=== PATIENT | female | born 2005 | race Caucasian/White ===

== ENCOUNTER 2024-10-17 20:29 | Observation (INO) | payer BC, OTHER ==
--- NOTE | 2024-10-17 20:54 | ED ---
General Adult HPI - General Chief complaint: Abdominal Pain Stated complaint: Cramping, 15 Weeks preg. Time Seen by Provider: 10/17/24 20:37 Source: patient, RN notes reviewed Mode of arrival: ambulatory Limitations: no limitations - History of Present Illness Initial comments: 18-year-old female presents to the emergency department for evaluation of abdominal cramping in . Patient states that she will be 15 weeks tomorrow. She reports cramping starting this morning and lasting throughout the day. She states that it has gotten worse throughout the day. She states that she has persistent cramps but the pain intermittently worsens. She reports that the severe pain lasts 1-1/2 to 2 hours at a time. She denies any vaginal bleeding, discharge. Denies dysuria, hematuria. Reports normal bowel movements. Admits to some mild nausea but no vomiting. Denies any significant past medical history. She follows with [facility] at [facility] but does not recall the name of her provider. - Related Data Home Medications Medication Instructions Recorded Confirmed Efi-Bojy-Rqcaq Acid 1 cap PO HS 10/18/24 10/18/24 [-U Capsule (formulary)] Previous Rx's Medication Instructions Recorded Acetaminophen Tab [Tylenol] 650 mg PO Q6HR PRN tab 10/20/24 cefuroxime axetiL [Ceftin] 500 mg PO BID #14 tab 10/20/24 Allergies Allergy/AdvReac Type Severity Reaction Status Date / Time No Known Allergies Allergy Verified 10/18/24 10:24 Review of Systems ROS Statement: Those systems with pertinent positive or pertinent negative responses have been documented in the HPI. ROS Other: All systems not noted in ROS Statement are negative. Past Medical History Past Medical History: No Reported History History of Any Multi-Drug Resistant Organisms: None Reported Past Surgical History: No Surgical Hx Reported Past Psychological History: No Psychological Hx Reported Smoking Status: Never smoker Past Alcohol Use History: None Reported Past Drug Use History: None Reported - Past Family History Mother History Unknown: Yes Father History Unknown: Yes General Exam Limitations: no limitations General appearance: alert, in no apparent distress Head exam: Present: atraumatic, normocephalic, normal inspection Eye exam: Present: normal appearance, PERRL, EOMI. Absent: scleral icterus, conjunctival injection, periorbital swelling ENT exam: Present: normal exam, mucous membranes moist Respiratory exam: Present: normal lung sounds bilaterally. Absent: respiratory distress, wheezes, rales, rhonchi, stridor Cardiovascular Exam: Present: regular rate, normal rhythm, normal heart sounds. Absent: systolic murmur, diastolic murmur, rubs, gallop, clicks GI/Abdominal exam: Present: soft, normal bowel sounds. Absent: distended, tenderness, guarding, rebound, rigid Extremities exam: Present: normal inspection, full ROM, normal capillary refill. Absent: tenderness, pedal edema, joint swelling, calf tenderness Neurological exam: Present: alert, oriented X3 Psychiatric exam: Present: normal affect, normal mood Skin exam: Present: warm, dry, intact, normal color. Absent: rash Course Vital Signs 10/17/24 10/18/24 20:30 00:06 Temperature 98.3 F Pulse Rate 78 88 Respiratory 18 18 Rate Blood Pressure 129/86 108/71 O2 Sat by Pulse 100 99 Oximetry Medical Decision Making - Medical Decision Making Was pt. sent in by a medical professional or institution (PRAMOD Mcleod, PUBLISHING SPECIALIST, urgent care, hospital, or fdc...) When possible be specific @ -No Did you speak to anyone other than the patient for history (EMS, parent, family, police, friend...)? What history was obtained from this source @ -No Did you review nursing and triage notes (agree or disagree)? Why? @ -I reviewed and agree with nursing and triage notes Were old charts reviewed (outside hosp., previous admission, EMS record, old EKG, old radiological studies, urgent care reports/EKG's, fdc records)? Report findings @ -No old charts were reviewed Differential Diagnosis (chest pain, altered mental status, abdominal pain women, abdominal pain men, vaginal bleeding, weakness, fever, dyspnea, syncope, headache, dizziness, GI bleed, back pain, seizure, CVA, palpatations, mental health, musculoskeletal)? @ -Differential Abdominal Pain Women: Appendicitis, Cholecystitis, diverticulosis, ischemic bowel, pancreatitis, hepatitis, UTI, gastroenteritis, AAA, incarcerated hernia, bowel obstruction, constipation, inflammatory bowel, hepatitis, peptic ulcer disease, splenic infarction, perforated viscus, vulvitis, ovarian torsion, PID, kidney stone, placenta abruption, this is not meant to be an all-inclusive list EKG interpreted by me (3pts min.). @ -None X-rays interpreted by me (1pt min.). @ -None done CT interpreted by me (1pt min.). @ -None done U/S interpreted by me (1pt. min.). @ -Ultrasound of the fetus shows a single live intrauterine measuring 15 weeks 4 days with a nonspecific focal circumscribed prominence along the right lower uterus possibly representing a focal uterine contraction What testing was considered but not performed or refused? (CT, X-rays, U/S, labs)? Why? @ -None What meds were considered but not given or refused? Why? @ -None Did you discuss the management of the patient with other professionals (professionals i.e. DrJeaneth, PA, PUBLISHING SPECIALIST, lab, RT, psych nurse, social work case manager, civil clerk, teacher, procurement officer, patient case coordinator)? Give summary @ -Management discussed with [facility] by my attending, Dr. Whitt Was smoking cessation discussed for >3mins.? @ -No Was critical care preformed (if so, how long)? @ -No Were there social determinants of health that impacted care today? How? (Homelessness, low income, unemployed, alcoholism, drug addiction, transportation, low edu. Level, literacy, decrease access to med. care, halfway, rehab)? @ -No Was there de-escalation of care discussed even if they declined (Discuss DNR or withdrawal of care, Hospice)? DNR status @ -No What co-morbidities impacted this encounter? (DM, HTN, Smoking, COPD, CAD, Cancer, CVA, ARF, Chemo, Hep., AIDS, mental health diagnosis, sleep apnea, morbid obesity)? @ - Was patient admitted / discharged? Hospital course, mention meds given and route, prescriptions, significant lab abnormalities, going to OR and other pertinent info. @ -Admitted.Patient presented the emergency department for evaluation of abdominal pain in . Laboratory studies obtained revealing no significant leukocytosis, hemoglobin stable; CMP shows sodium 132, potassium 4.1 patient was provided fluid hydration in the ED. UA obtained shows small blood, large leukocyte esterase, greater than 182 WBCs. Ultrasound of the fetus shows a single live intrauterine measuring 15 weeks 4 days with a nonspecific focal circumscribed prominence along the right lower uterus possibly representing a focal uterine contraction. Patient was started on Rocephin. Patient will be admitted for concern of developing pyelonephritis and . Case was discussed with [facility] by my attending, Dr. Whitt. Patient is understanding and agreeable with plan. Undiagnosed new problem with uncertain prognosis? @ -No Drug Therapy requiring intensive monitoring for toxicity (Heparin, Nitro, Insu dariusz, Cardizem)? @ -No Were any procedures done? @ -No Diagnosis/symptom? @ -UTI Acute, or Chronic, or Acute on Chronic? @ -Acute Uncomplicated (without systemic symptoms) or Complicated (systemic symptoms)? @ -Complicated Side effects of treatment? @ -No Exacerbation, Progression, or Severe Exacerbation? @ -No Poses a threat to life or bodily function? How? (Chest pain, USA, MS, pneumonia, PE, COPD, DKA, ARF, appy, cholecystitis, CVA, Diverticulitis, Homicidal, Suicidal, threat to staff... and all critical care pts) @ -No - Lab Data Result diagrams: 10/18/24 06:12 10/18/24 06:12 Lab Results 10/17/24 10/17/24 10/17/24 Range/Units 21:04 21:04 22:00 WBC 8.3 (4.0-11.0) k/uL RBC 5.25 (3.80-5.40) m/uL Hgb 15.7 (11.4-16.0) gm/dL Hct 45.1 (34.0-46.0) % MCV 85.9 (80.0-100.0) fL MCH 30.0 (25.0-35.0) pg MCHC 34.9 (31.0-37.0) g/dL RDW 12.6 (11.5-15.5) % Plt Count 231 (150-450) k/uL MPV 6.8 Neutrophils % 59 % Lymphocytes % 31 % Monocytes % 6 % Eosinophils % 2 % Basophils % 0 % Neutrophils # 4.9 (1.3-7.7) k/uL Lymphocytes # 2.6 (1.0-4.8) k/uL Monocytes # 0.5 (0-1.0) k/uL Eosinophils # 0.2 (0-0.7) k/uL Basophils # 0.0 (0-0.2) k/uL Sodium 132 L (137-145) mmol/L Potassium 4.1 (3.5-5.1) mmol/L Chloride 103 (98-107) mmol/L Carbon Dioxide 19 L (22-30) mmol/L Anion Gap 10 mmol/L BUN 9 (7-17) mg/dL Creatinine 0.61 (0.52-1.04) mg/dL Est GFR (CKD-EPI)AfAm >90 (>60 ml/min/1.73 sqM) Est GFR (CKD-EPI)NonAf >90 (>60 ml/min/1.73 sqM) Glucose 79 (74-99) mg/dL Calcium 9.8 (8.4-10.2) mg/dL Total Bilirubin 0.6 (0.2-1.3) mg/dL AST 24 (14-36) U/L ALT 16 (4-34) U/L Alkaline Phosphatase 41 (38-126) U/L Total Protein 7.2 (6.3-8.2) g/dL Albumin 4.4 (3.5-5.0) g/dL Lipase 159 (23-300) U/L Urine Color Light Yellow Urine Appearance Cloudy H (Clear) Urine pH 6.0 (5.0-8.0) Ur Specific [place] 1.019 (1.001-1.035) Urine Protein Trace H (Negative) Urine Glucose (UA) Negative (Negative) Urine Ketones 1+ H (Negative) Urine Blood Small H (Negative) Urine Nitrite Negative (Negative) Urine Bilirubin Negative (Negative) Urine Urobilinogen <2.0 (<2.0) mg/dL Ur Leukocyte Esterase Large H (Negative) Urine RBC 25 H (0-5) /hpf Urine WBC >182 H (0-5) /hpf Ur Squamous Epith Cells 17 H (0-4) /hpf Amorphous Sediment Occasional H (None) /hpf Urine Bacteria Many H (None) /hpf Urine Mucus Few H (None) /hpf Disposition Clinical Impression: Pyelonephritis affecting Disposition: ADMITTED IP TO THIS HOSP Is patient prescribed a controlled substance at d/c from ED?: No
[2024-10-17 21:42] LABS: Basophils % (A) 0 %; Eosinophils # (A) 0.2 k/uL (0-0.7); Eosinophils % (A) 2 %; HCT 45.1 % (34.0-46.0); HGB 15.7 gm/dL (11.4-16.0); Lymphocytes # (A) 2.6 k/uL (1.0-4.8); Lymphocytes % (A) 31 %; MCHC 34.9 g/dL (31.0-37.0); MCV 85.9 fL (80.0-100.0); Mean Platelet Volume 6.8; Monocytes # (A) 0.5 k/uL (0-1.0); Monocytes % (A) 6 %; Neutrophils # (A) 4.9 k/uL (1.3-7.7); Neutrophils % (A) 59 %; Platelet Count 231 k/uL (150-450); RBC 5.25 m/uL (3.80-5.40); RDW 12.6 % (11.5-15.5); WBC 8.3 k/uL (4.0-11.0)
[2024-10-17 21:53] LABS: ALT 16 U/L (4-34); AST 24 U/L (14-36); African American GFR (CKD) >90 (>60 ml/min/1.73 sqM); Albumin 4.4 g/dL (3.5-5.0); Alkaline Phosphatase 41 U/L (38-126); Anion Gap 10 mmol/L; Blood Urea Nitrogen 9 mg/dL (7-17); Calcium 9.8 mg/dL (8.4-10.2); Carbon Dioxide 19 mmol/L (22-30); Chloride 103 mmol/L (98-107); Glucose 79 mg/dL (74-99); Lipase 159 U/L (23-300); Non-African American GFR(CKD) >90 (>60 ml/min/1.73 sqM); Potassium 4.1 mmol/L (3.5-5.1); Sodium 132 mmol/L (137-145); Total Bilirubin 0.6 mg/dL (0.2-1.3); Total Protein 7.2 g/dL (6.3-8.2)
--- NOTE | 2024-10-17 22:17 | US ---
EXAMINATION TYPE: US OB >= 14 wk fetus DATE OF EXAM: 10/17/2024 COMPARISON: None CLINICAL INDICATION: Female, 18 years old with history of 15 wks, cramping; pelvic cramping began at 5am TECHNIQUE: Transabdominal (TA) FINDINGS: GESTATIONAL AGE / DATING Physician Established: (14 weeks/6 days) EDC: 04/11/25 Dates by Current Scan: (15 weeks/4 days) EDC: 04/06/25 Beta HCG (if available): Not available at this time SURVEY IUP: Single PLACENTA: Anterior PREVIA: No Previa DANNY: 12.9 cm Normal CERVICAL LENGTH (transabdominal: norm > 3.0cm): 3.4 cm BIOMETRY PRESENTATION: Vertex LIE: Longitudinal BPD: 3.14 cm 15 weeks / 6 days HC: 11.4 cm 15 weeks / 4 days AC: 9.5 cm 15 weeks / 5 days FL: 1.6 cm 14 weeks / 6 days ESTIMATED WEIGHT IN GRAMS: 118 grams ESTIMATED WEIGHT IN LBS/OZ: 0 lbs. 4 oz. WEIGHT PERCENTAGE BASED ON ESTABLISHED DATES: 64% HC/AC: 1.2 Normal FL/AC: 17% HEART RATE: 146 bpm RHYTHM: Normal Patient limited by positioning. Nonspecific focal circumscribed prominence along the right lower uterus, possibly representing a foca l uterine contraction. Recommend appropriate clinical follow-up with FIBR[facility] PLASTERER and attention on follow-u p imaging. IMPRESSION: Single live intrauterine with estimated gestational age of 15 weeks 4 days. survey me asurements as above. [facility], , 10/17/2024 10:14 PM
[2024-10-17] MEDS: SODIUM CHLORIDE 0.9% 1,000 ML IV ONE (22:52)
[2024-10-17 23:25] LABS: Amorphous Sediment,Urine Occasional /hpf; Appearance,Urine Cloudy (Clear); Bacteria,Urine Many /hpf; Bilirubin,Urine Negative (Negative); Blood,Urine Small (Negative); Color,Urine Light Yellow; Glucose,Urine (UA) Negative (Negative); Ketones,Urine 1+ (Negative); Leukocyte Esterase,Urine Large (Negative); Mucus,Urine Few /hpf; Nitrite,Urine Negative (Negative); Protein,Urine Trace (Negative); RBC,Urine 25 /hpf (0-5); Specific Gravity,Urine 1.019 (1.001-1.035); Squamous Epithelial Cell,Urine 17 /hpf (0-4); Urobilinogen,Urine <2.0 mg/dL (<2.0); WBC,Urine >182 /hpf (0-5)
[2024-10-17] MEDS ORDERED: MORPHINE SULFATE 4 MG/ML SYRINGE IV PRN (23:37)
[2024-10-17] MEDS ORDERED: NALOXONE 0.4 MG/ML 1 ML VIAL IV PRN (23:37)
[2024-10-18] MEDS: SODIUM CHLORIDE 0.9% 1,000 ML IV SCH (00:16)
[2024-10-18] MEDS: ACETAMINOPHEN TAB 325 MG TAB PO PRN (04:58)
[2024-10-18] MEDS: ONDANSETRON 4 MG/2 ML VIAL IVP PRN (06:03)
[2024-10-18 06:25] LABS: Basophils % (A) 0 %; Eosinophils # (A) 0.1 k/uL (0-0.7); Eosinophils % (A) 1 %; HCT 37.7 % (34.0-46.0); Lymphocytes # (A) 1.5 k/uL (1.0-4.8); Lymphocytes % (A) 20 %; MCH 29.7 pg (25.0-35.0); MCHC 33.7 g/dL (31.0-37.0); MCV 88.1 fL (80.0-100.0); Mean Platelet Volume 6.6; Monocytes # (A) 0.3 k/uL (0-1.0); Monocytes % (A) 4 %; Neutrophils # (A) 5.7 k/uL (1.3-7.7); Neutrophils % (A) 75 %; Platelet Count 200 k/uL (150-450); RBC 4.28 m/uL (3.80-5.40); RDW 12.6 % (11.5-15.5); WBC 7.6 k/uL (4.0-11.0)
[2024-10-18 06:39] LABS: HGB 12.7 gm/dL (11.4-16.0)
[2024-10-18 08:06] LABS: African American GFR (CKD) >90 (>60 ml/min/1.73 sqM); Anion Gap 8 mmol/L; Blood Urea Nitrogen 5 mg/dL (7-17); Calcium 8.9 mg/dL (8.4-10.2); Carbon Dioxide 18 mmol/L (22-30); Chloride 108 mmol/L (98-107); Glucose 82 mg/dL (74-99); Non-African American GFR(CKD) >90 (>60 ml/min/1.73 sqM); Potassium 3.8 mmol/L (3.5-5.1); Sodium 134 mmol/L (137-145)
--- NOTE | 2024-10-18 12:23 | P.OBCN ---
History of Present Illness Consult date: 10/18/24 Reason for consult: other (UTI/pyelonephritis, 16 weeks of .) History of present illness: The patient is a 18-year-old 1 para 0 who presents to the hospital at approximately 16 weeks of gestation with complaints of severe suprapubic midline cramping for approximately 24 hours that did radiate to her right flank. In the emergency room, she was found to have what appeared to be a fairly significant urinary tract infection though her white count was not elevated and she was afebrile. She denied fever at home. She had no significant nausea or vomiting. She was admitted for management of UTI/borderline pyelonephritis. She was given a dose of Rocephin in the emergency room and this is to be continued. She does feel moderately better approximately 18 hours after presentation. She does not have any sensation of movement at this point. Her to this point has otherwise been uncomplicated. Obstetrical history: 1 para 0 with current statistics listed above. EDC of 04/11/2025 was established by early ultrasound. laboratory panel is unremarkable with blood type a positive. Gynecologic history: Unremarkable with no history of any infections to include STDs. Review of Systems Review of systems is confined to history of present illness. Past Medical History Past Medical History: No Reported History History of Any Multi-Drug Resistant Organisms: None Reported Past Surgical History: No Surgical Hx Reported Past Psychological History: No Psychological Hx Reported Smoking Status: Never smoker Past Alcohol Use History: None Reported Past Drug Use History: None Reported - Past Family History Mother History Unknown: Yes Father History Unknown: Yes Medications and Allergies Home Medications Medication Instructions Recorded Confirmed Type Onq-Jlgy-Ccoyp Acid 1 cap PO HS 10/18/24 10/18/24 History [-U Capsule (formulary)] Allergies Allergy/AdvReac Type Severity Reaction Status Date / Time No Known Allergies Allergy Verified 10/18/24 10:24 Exam Vital Signs Temp Pulse Pulse Resp BP BP Pulse Ox 10/18/24 07:00 98.2 F 91 15 105/63 99 10/18/24 00:40 98.1 F 79 16 100/61 100 10/18/24 00:06 88 18 108/71 99 10/17/24 20:30 98.3 F 78 18 129/86 100 Intake and Output 10/17/24 10/18/2410/18/25 22:59 06:59 14:59 Other: Voiding Method Toilet Toilet # Voids 2 Weight 58.967 kg 58.967 kg In general, this is a well-developed, well-nourished white female in no acute distress. Her abdomen is nondistended, soft, minimal midline tenderness in the suprapubic region. The uterine fundus is palpable consistent with approximately 15 to 16 weeks size. heart tones are doppled at approximately 148 bpm. The uterus itself is nontender. Her extremities are without any cyanosis, clubbing, edema and are nontender to palpation bilaterally. Results Result Diagrams: 10/18/24 06:12 10/18/24 06:12 Abnormal Lab Results - Last 24 Hours (Table) 10/17/24 10/17/24 10/18/24 Range/Units 21:04 22:00 06:12 Sodium 132 L 134 L (137-145) mmol/L Chloride 108 H (98-107) mmol/L Carbon Dioxide 19 L 18 L (22-30) mmol/L BUN 5 L (7-17) mg/dL Urine Appearance Cloudy H (Clear) Urine Protein Trace H (Negative) Urine Ketones 1+ H (Negative) Urine Blood Small H (Negative) Ur Leukocyte Esterase Large H (Negative) Urine RBC 25 H (0-5) /hpf Urine WBC >182 H (0-5) /hpf Ur Squamous Epith Cells 17 H (0-4) /hpf Amorphous Sediment Occasional H (None) /hpf Urine Bacteria Many H (None) /hpf Urine Mucus Few H (None) /hpf Assessment and Plan (1) Pyelonephritis affecting Current Visit: Yes Status: Acute Code(s): O23.00 - INFECTIONS OF KIDNEY IN , UNSPECIFIED TRIMESTER SNOMED Code(s): 24146442461600 Plan: I do not believe that her symptoms meet the diagnosis of pyelonephritis as she has afebrile and without a white count but do agree that it is approaching that. IV antibiotic management is appropriate and Rocephin is an excellent choice. I do not see any reason for infectious disease consultation assuming there is a urine culture pending. I would treat the patient with IV antibiotics until afebrile with a normal white count for at least 24 hours with at least moderate clinical improvement. Given this criteria, I would anticipate she be ready for discharge tomorrow morning. She will otherwise then follow-up with our office in the outpatient setting and has an appointment a week from tomorrow. I would consider continuing her on antibiotics orally as an outpatient. Options would include Keflex 500 mg 3 times daily, Bactrim DS twice daily, or Macrobid twice daily.
--- NOTE | 2024-10-18 13:39 | US ---
EXAMINATION TYPE: US kidneys/renal and bladder DATE OF EXAM: 10/18/2024 COMPARISON: NONE CLINICAL INDICATION: Female, 18 years old with history of pyelonephritis; RLQ pain x 2 days; Patient is about 15 weeks . TECHNIQUE: Grayscale imaging of the bilateral kidneys and urinary bladder: FINDINGS: EXAM MEASUREMENTS: Right Kidney: 10.4 x 4.8 x 5.3 cm Left Kidney: 10.3 x 6.7 x 5.0 cm Post Void Residual Volume: NA mL RLQ scanned due to patients concern. ? Normal appendix visualized vs bowel. ? Dilated tubular structu res seen superior lateral to gravidad uterus. Fluid seen in RLQ post void ? Hypoechoic/anechoic area seen between bladder and uterus post void Right Kidney: Prominent renal pelvis otherwise WNL Left Kidney: WNL Bladder: WNL Bilateral Jets seen: Right jet not seen within the 5 minute period Normal Post Void Residual: Yes IMPRESSION: 1. No renal calcification or hydronephrosis. 2. Small amount of fluid within the pelvis. [facility], Workstation: KRYSTAL 10/18/2024 1:36 PM
[2024-10-18] MEDS ORDERED: MORPHINE SULFATE 2 MG/ML SYRINGE IV PRN (15:08)
--- NOTE | 2024-10-18 15:08 | P.HPIM ---
History of Present Illness H&P Date: 10/18/24 History of present illness: 18-year-old female with 1 para 0 who presented to hospital for complaint of severe suprapubic midline cramping pain for approximately 24 hours radiating to right flank. Patient is currently approximately 16 weeks of gestation. Patient denied any fever or chills at home. Patient also denied any nausea or vomiting. Patient denied any diarrhea. Patient denied any vaginal discharge. Patient afebrile, heart rate 91, respiratory rate 15, blood pressure 105/63, saturating 99% on room air. WBC 7.6, hemoglobin 12.7, platelet 200. BMP unremarkable. UA positive for WBCs more than 182, large leukocyte esterase many bacteria, 17 squamous cells. ultrasound showed single live intrauterine with estimated gestational age of 15 weeks 4 days. Abdomen/bladder ultrasound showed no renal calcification or hydronephrosis, small amount of fluid within the pelvis. Assessment and plan: Lower abdominal pain: UTI: 16 weeks : Presented with 1 day symptoms of lower abdominal cramping pain. ultrasound showed single live intrauterine with estimated gestational age of 15 weeks 4 days. Abdomen/bladder ultrasound showed no renal calcification or hydronephrosis, small amount of fluid within the pelvis. Urinalysis positive. Currently on Rocephin Infectious disease consultedrecommended general surgery consult and ultrasound abdomen complete PUPIL PERSONNEL WORKER consulted recommended antibiotics---, okay to continue Rocephin, other options include Keflex, Bactrim or Macrobid. General surgery consulted DVT prophylaxis SCD Monitor vital signs and labs Labs and medication were reviewed. Continue same treatment. Further recommendations as per clinical course of the patient PHYSICAL EXAMINATION: GENERAL: The patient is A&O x3, NAD HEENT: EOMI, Sclerae anicteric, Moist Mucous membranes Neck: Supple, Non tender, No JVD PULMONARY: Equal breath souds B/L, No wheezing, No crackles. CARDIOVASCULAR: S1, S2 present. No murmurs, rubs, or gallops. ABDOMEN: Soft, Lower abd tender, nondistended, normoactive bowel sounds. No guarding or rebound tenderness. MUSCULOSKELETAL: No edema, No cyanosis. No clubbing. Normal ROM. Intact peripheral pulses. NEUROLOGICAL: CN 2-12 grossly intact. No FND REVIEW OF SYSTEMS: CONSTITUTIONAL: No fever, no malaise, no fatigue. HEENT: No recent visual problems or hearing problems. Denied any sore throat. CARDIOVASCULAR: No chest pain, orthopnea, PND, no palpitations, no syncope. PULMONARY: No shortness of breath, no cough, no hemoptysis. GASTROINTESTINAL: Complains of lower abdominal pain, radiating to bilateral upper flanks. NEUROLOGICAL: No headaches, no weakness, no numbness. HEMATOLOGICAL: Denies any bleeding or petechiae. GENITOURINARY: Denies any burning micturition, frequency, or urgency. MUSCULOSKELETAL/RHEUMATOLOGICAL: Denies any joint pain, swelling, or any muscle pain. ENDOCRINE: Denies any polyuria or polydipsia. The rest of the 14-point review of systems is negative. Dictation was produced using [employer] software. please excuse any grammatical, word or spelling errors. Past Medical History Past Medical History: No Reported History History of Any Multi-Drug Resistant Organisms: None Reported Past Surgical History: No Surgical Hx Reported Past Psychological History: No Psychological Hx Reported Smoking Status: Never smoker Past Alcohol Use History: None Reported Past Drug Use History: None Reported - Past Family History Mother History Unknown: Yes Father History Unknown: Yes Medications and Allergies Home Medications Medication Instructions Recorded Confirmed Type Zei-Oarx-Vinhu Acid 1 cap PO HS 10/18/24 10/18/24 History [-U Capsule (formulary)] Allergies Allergy/AdvReac Type Severity Reaction Status Date / Time No Known Allergies Allergy Verified 10/18/24 10:24 Physical Exam Vitals: Vital Signs Temp Pulse Pulse Resp BP BP Pulse Ox 10/18/24 07:00 98.2 F 91 15 105/63 99 10/18/24 00:40 98.1 F 79 16 100/61 100 10/18/24 00:06 88 18 108/71 99 10/17/24 20:30 98.3 F 78 18 129/86 100 Intake and Output 10/18/24 10/18/24 10/18/24 06:59 14:59 22:59 Other: Voiding Method Toilet Toilet # Voids 2 Weight 58.967 kg Results CBC & Chem 7: 10/18/24 06:12 10/18/24 06:12 Labs: Abnormal Lab Results - Last 24 Hours (Table) 01/25/25 01/25/25 01/26/25 Range/Units 21:04 22:00 06:12 Sodium 132 L 134 L (137-145) mmol/L Chloride 108 H (98-107) mmol/L Carbon Dioxide 19 L 18 L (22-30) mmol/L BUN 5 L (7-17) mg/dL Urine Appearance Cloudy H (Clear) Urine Protein Trace H (Negative) Urine Ketones 1+ H (Negative) Urine Blood Small H (Negative) Ur Leukocyte Esterase Large H (Negative) Urine RBC 25 H (0-5) /hpf Urine WBC >182 H (0-5) /hpf Ur Squamous Epith Cells 17 H (0-4) /hpf Amorphous Sediment Occasional H (None) /hpf Urine Bacteria Many H (None) /hpf Urine Mucus Few H (None) /hpf Thrombosis Risk Factor Assmnt - Choose All That Apply Each Factor Represents 1 point: or Other Risk Factors: No Thrombosis Risk Factor Assessment Total Risk Factor Score: 1 Thrombosis Risk Factor Assessment Level: Low Risk
--- NOTE | 2024-10-18 20:59 | US ---
EXAMINATION TYPE: US abdomen complete DATE OF EXAM: 10/18/2024 COMPARISON: NONE CLINICAL INDICATION: Female, 18 years old with history of Lower abd pain; abdomen pain, UTI, pt is 15 weeks TECHNIQUE: Grayscale and color Doppler imaging of the abdomen was performed. FINDINGS: EXAM MEASUREMENTS: Liver Length: 15.6 cm Gallbladder Wall: 0.2 cm CBD: 0.3 cm, color Doppler imaging was utilized to isolate the common bile duct for measurement. Spleen: 10.8 cm Right Kidney: 10.3x4.5x5.3 cm Left Kidney: 9.8x5.9x5.5 cm CERAMIST NOTES: Pancreas: Tail obscured by overlying bowel gas Liver: wnl, no dilated ducts, masses or cysts. Gallbladder: wnl Evidence for sonographic Yap's sign: No CBD: wnl Spleen: wnl Right Kidney: Possible mild right-sided hydronephrosis. No evidence of right-sided nephrolithiasis. N o solid renal mass. Left Kidney: wnl, No hydronephrosis, calculi or masses seen Upper IVC: prominent but compressible Abd Aorta: wnl The liver is homogenous. The intrahepatic portion of the IVC and proximal abdominal aorta are within normal limits. There is no evidence of cholelithiasis. Common bile duct is unremarkable. The visu alized portions of the pancreas are homogenous. The spleen is unremarkable. Possible mild right-side d hydronephrosis without discrete sonographic evidence of an obstructing stone or other lesion. Limit ed evaluation of the mid and distal right ureter due to shadowing bowel gas. No evidence of left-side d hydronephrosis. IMPRESSION: Questionable mild right-sided hydronephrosis without discrete sonographic evidence of an obstructing stone or other lesion. Limited evaluation of the mid and distal right ureter due to shadowing bowel g as. [facility], , 10/18/2024 8:57 PM
--- NOTE | 2024-10-19 09:11 | P.CONS ---
History of Present Illness - Reason for Consult Consult date: 10/18/24 UTI, 15 weeks Requesting physician: Deric Cifuentes - Chief Complaint Abdominal pain x 1 day - History of Present Illness Patient is a 18-year-old female with no significant past medical history patient is currently 15 weeks presenting to the hospital for evaluation of right-sided abdominal pain that started the day of presentation to hospital and has progressively got worse patient have described the pain to be cramping moderate in intensity without any radiation patient did have nausea and episode of vomiting yesterday patient denies having any diarrhea or constipation denies having any burning or frequency of urine patient on presentation to the hospital was afebrile and no fever have recorded subsequently patient was nontachycardic hypotensive or hypoxic and no need for supplemental oxygen she did have a white count of 8.3 repeat is 7.6 with a left shift creatinine 0.56 UA has been significantly positive with large leukocyte esterase more than 1-2 WBC patient received a dose of Rocephin in the ER infectious disease was consulted regarding UTI 15 weeks Review of Systems Positive point and negatives has been mentioned in the HPI, complete review of systems was performed and all other systems are negative Past Medical History Past Medical History: No Reported History History of Any Multi-Drug Resistant Organisms: None Reported Past Surgical History: No Surgical Hx Reported Past Psychological History: No Psychological Hx Reported Smoking Status: Never smoker Past Alcohol Use History: None Reported Past Drug Use History: None Reported - Past Family History Mother History Unknown: Yes Father History Unknown: Yes Medications and Allergies Home Medications Medication Instructions Recorded Confirmed Type Gfa-Aoqp-Grflr Acid 1 cap PO HS 10/18/24 10/18/24 History [-U Capsule (formulary)] Allergies Allergy/AdvReac Type Severity Reaction Status Date / Time No Known Allergies Allergy Verified 10/18/24 10:24 Physical Exam Vitals: Vital Signs Temp Pulse Pulse Resp BP BP Pulse Ox 10/18/24 07:00 98.2 F 91 15 105/63 99 10/18/24 00:40 98.1 F 79 16 100/61 100 10/18/24 00:06 88 18 108/71 99 10/17/24 20:30 98.3 F 78 18 129/86 100 Intake and Output 10/17/24 10/18/24 10/18/24 22:59 06:59 14:59 Other: Voiding Method Toilet Toilet # Voids 2 Weight 58.967 kg 58.967 kg GENERAL DESCRIPTION: Young female lying in bed, no distress. No tachypnea or accessory muscle of respiration use. HEENT: Shows Pallor , no scleral icterus. Oral mucous membrane is dry. No pharyngeal erythema or thrush NECK: Trachea central, no thyromegaly. LUNGS: Unlabored breathing. Clear to auscultation anteriorly. No wheeze or crackle. HEART: S1, S2, regular rate and rhythm. No loud murmur ABDOMEN: Soft, right lower quadrant tenderness with some rebound tenderness EXTREMITIES: No edema of feet. SKIN: No rash, no masses palpable. NEUROLOGICAL: The patient is awake, alert, oriented x3, mood and affect normal. Results CBC & Chem 7: 10/18/24 06:12 10/18/24 06:12 Labs: Abnormal Lab Results - Last 24 Hours (Table) 10/17/24 10/17/24 10/18/24 Range/Units 21:04 22:00 06:12 Sodium 132 L 134 L (137-145) mmol/L Chloride 108 H (98-107) mmol/L Carbon Dioxide 19 L 18 L (22-30) mmol/L BUN 5 L (7-17) mg/dL Urine Appearance Cloudy H (Clear) Urine Protein Trace H (Negative) Urine Ketones 1+ H (Negative) Urine Blood Small H (Negative) Ur Leukocyte Esterase Large H (Negative) Urine RBC 25 H (0-5) /hpf Urine WBC >182 H (0-5) /hpf Ur Squamous Epith Cells 17 H (0-4) /hpf Amorphous Sediment Occasional H (None) /hpf Urine Bacteria Many H (None) /hpf Urine Mucus Few H (None) /hpf Assessment and Plan (1) UTI (urinary tract infection) Current Visit: Yes Status: Acute Code(s): N39.0 - URINARY TRACT INFECTION, SITE NOT SPECIFIED SNOMED Code(s): 13794371 Plan: 1patient presenting the hospital with lower abdominal pain in this patient who is currently 15 weeks patient noticed to have a significant tenderness right lower quadrant area with some rebound tenderness with a question of possible appendicitis, patient did have a significant positive UA however no significant urinary symptoms of burning or frequency 2-Case has been discussed detail with admitting physician will benefit from general surgery evaluation to rule out appendicitis 3-patient will be covered with Rocephin while waiting for the workup to be comp leted Multiple question concern answered We will follow on clinical condition and cultures to further adjust medication if needed Thank you for this consultation we will follow the patient along with you Dictation was produced using [employer] dictation software. please excuse any grammatical, word or spelling errors. Time with Patient: Greater than 30
--- NOTE | 2024-10-19 17:39 | P.PN ---
Progress Note - Text Progress Note Date: 10/19/24 History of present illness: 18-year-old female with 1 para 0 who presented to hospital for complaint of severe suprapubic midline cramping pain for approximately 24 hours radiating to right flank. Patient is currently approximately 16 weeks of gestation. Patient denied any fever or chills at home. Patient also denied any nausea or vomiting. Patient denied any diarrhea. Patient denied any vaginal discharge. Patient afebrile, heart rate 91, respiratory rate 15, blood pressure 105/63, saturating 99% on room air. WBC 7.6, hemoglobin 12.7, platelet 200. BMP unremarkable. UA positive for WBCs more than 182, large leukocyte esterase many bacteria, 17 squamous cells. ultrasound showed single live intrauterine with estimated gestational age of 15 weeks 4 days. Abdomen/bladder ultrasound showed no renal calcification or hydronephrosis, small amount of fluid within the pelvis. October 19: Reclining in bed. Having some nausea. Still having abdominal pain. I just spoke to the nurse patient seen by surgery. Have ordered MRI of the abdomen. No further fever.At remains on IV ceftriaxone. Patient's at the bedside. Active Medications Acetaminophen (Acetaminophen Tab 325 Mg Tab) 650 mg PO Q6HR PRN PRN Reason: Mild Pain or Fever > 100.5 Last Admin: 10/19/24 13:42 Dose: 650 mg Sodium Chloride (Saline 0.9%) 1,000 mls @ 100 mls/hr IV .Q10H DARIUSZ Last Admin: 10/19/24 13:50 Dose: 100 mls/hr Ceftriaxone Sodium 1 gm/ (Sodium Chloride) 50 mls @ 100 mls/hr IVPB HS [facility]; Protocol Last Admin: 10/18/24 21:04 Dose: 100 mls/hr Morphine Sulfate (Morphine Sulfate 2 Mg/Ml Syringe) 2 mg IV Q4HR PRN PRN Reason: Severe Pain (Scale 7 to 10) Naloxone HCl (Naloxone 0.4 Mg/Ml 1 Ml Vial) 0.2 mg IV Q2M PRN PRN Reason: Opioid Reversal Ondansetron HCl (Ondansetron 4 Mg/2 Ml Vial) 4 mg IVP Q8HR PRN PRN Reason: Nausea And Vomiting Last Admin: 10/19/24 16:18 Dose: 4 mg On examination: VITAL SIGNS: [98.1, 76, 15, 98 x 60, 98% room air] GENERAL APPEARANCE: Reclining in bed not in distress. HEENT: Normal external appearance of nose and ear. Oral cavity normal EYES: Pupils equal. Conjunctiva normal. NECK: JVD not raised. Mass not palpable. RESPIRATORY: Respiratory effort normal. Lungs clear to auscultation. CARDIOVASCULAR: First and second sounds normal. No edema. ABDOMEN: Soft. Liver and spleen not palpable. Right lower abdomen tenderness. No guarding rigidity. No tenderness in the right renal angle. No mass palpable. PSYCHIATRY: Alert and oriented x3. Mood and affect normal. INVESTIGATIONS, reviewed in the clinical context: October 18: White count 7.6 hemoglobin 12.7 sodium 134 potassium 3.8 BUN 5 creatinine 0.56 UA: Leukoesterase large. RBC 25. WBC more than 182. Squamous epithelial cells 17. ultrasound: Single live IUP estimated gestational age of 15 weeks 4 days. Ultrasound kidney bladder. Nonspecific Abdominal ultrasound: Possible mild right-sided hydronephrosis. Assessment and plan: -Acute abdominal pain. Possibility of mild pyelonephritis. Currently on IV ceftriaxone -Possibility of acute appendicitis. Could be retrocecal. Tender in the right lower quadrant. Surgery consulted. They have ordered an MRI -Acute UTI: IV ceftriaxone -16 weeks intrauterine Patient seen by Dr. Rosa Rooney from [facility]. Follows up at their office -Mild hyponatremia from decreased solid intake and increase intake of water. Discussed with patient Discussed with patient and boyfriend at the bedside. As a nurse. Patient sit up in the chair. Ambulate in the hallway. Diet discussed. MRI ordered by surgery. Past Medical History Past Medical History: No Reported History History of Any Multi-Drug Resistant Organisms: None Reported Past Surgical History: No Surgical Hx Reported Past Psychological History: No Psychological Hx Reported Smoking Status: Never smoker Past Alcohol Use History: None Reported Past Drug Use History: None Reported
--- NOTE | 2024-10-19 19:47 | P.GSCN ---
History of Present Illness Consult date: 10/19/24 History of present illness: 18-year-old female presents to the emergency department with complaint of lower abdominal pain. She states that this started suddenly on the day prior to her arrival. Denies any significant changes in bowel function. She complains of pain radiating to the right flank. She states that this was a constant pain prior to arrival and now is waxing and waning. She was diagnosed with urinary tract infection with concern for possibility of developing pyelonephritis. Ultrasound was completed with possibility of mild hydronephrosis of the right side. Surgery is consulted for evaluation of possible appendicitis. Patient was started on Rocephin for treatment of the urinary tract infection. Patient is 15 weeks of gestation. Denies any fevers, chills, chest pain or shortness of breath. Review of Systems All systems: negative Past Medical History Past Medical History: No Reported History History of Any Multi-Drug Resistant Organisms: None Reported Past Surgical History: No Surgical Hx Reported Past Psychological History: No Psychological Hx Reported Smoking Status: Never smoker Past Alcohol Use History: None Reported Past Drug Use History: None Reported - Past Family History Mother History Unknown: Yes Father History Unknown: Yes Medications and Allergies Home Medications Medication Instructions Recorded Confirmed Type Ptl-Yumt-Imkir Acid 1 cap PO HS 10/18/24 10/18/24 History [-U Capsule (formulary)] Allergies Allergy/AdvReac Type Severity Reaction Status Date / Time No Known Allergies Allergy Verified 10/18/24 10:24 Surgical - Exam Osteopathic Statement: *. No significant issues noted on an osteopathic structural exam other than those noted in the History and Physical/Consult. Vital Signs Temp Pulse Resp BP Pulse Ox 98.3 F 78 18 129/86 100 10/17/24 20:30 10/17/24 20:30 10/17/24 20:30 10/17/24 20:30 10/17/24 20:30 - General well developed, well nourished - Eyes normal ocular movement - ENT no hearing loss - Neck trachea midline - Respiratory normal respiratory effort - Abdomen Mild tenderness to bilateral lower quadrants with palpation and patient states uncomfortable with percussion, no rebound or guarding Abdomen: soft - Psychiatric oriented to time, oriented to person, oriented to place Results - Labs 10/18/24 06:12 10/18/24 06:12 Microbiology - Last 24 Hours (Table) 10/17/24 22:00 Urine Culture - Final Urine,Voided Assessment and Plan Plan: 18-year-old female with bilateral lower abdominal pain with 15 weeks of gestation. On evaluation, patient is not showing any classic signs of appendicitis. She did not present with any leukocytosis and has been on Rocephin to treat urinary tract infection. Patient has had some improvement in her symptoms since arriving to the hospital with hydration and antibiotic treatment of urinary tract infection. Patient has not had any febrile episodes. After discussion with the patient, clinically this does not appear to be appendicitis, however for full evaluation recommendation is made for MRI of the abdomen and pelvis for evaluation of the appendix. Patient would like this completed and it is reasonable. Further recommendations after MRI of abdomen and pelvis are completed.
--- NOTE | 2024-10-19 19:51 | MR ---
EXAMINATION TYPE: MR abdomen wo con, MR pelvis wo con DATE OF EXAM: 10/19/2024 6:47 PM COMPARISON: Ultrasound 10/18/2024. CLINICAL INDICATION: Female, 18 years old with history of , r/o appendicitis; pain , R/O Appendicitis TECHNIQUE: Multiplanar multi-sequence imaging was performed without contrast. IV Contrast: mL None Triplane multisequence imaging was performed of the pelvis. IV Contrast: mL None FINDINGS: LOWER CHEST: No gross irregularity. ABDOMEN Liver: No evidence for hepatic steatosis or cirrhosis. Gallbladder and Bile ducts: No evidence for ductal dilation, or biliary stricture or evidence of chol edocholithiasis. The gallbladder is within normal limits. Pancreas: No ductal dilation. No evidence for solid mass. Spleen: Normal for size. Adrenal glands: Unremarkable. Kidneys: Selected normal physiologic dilation of the bilateral renal collecting system. No evidence f or obstructive uropathy. No suspicious renal masses. Stomach and Bowel: No evidence for bowel wall thickening or evidence for obstruction. The appendix is not definitively visualized. Exam limited by extensive bowel movement and close adjacent structures in the right lower quadrant near the expected location of appendix. Retroperitoneum/Peritoneum: No evidence of pneumoperitoneum. Trace free fluid around the liver. Vasculature: No aortic aneurysm. Musculoskeletal: The osseous structures appear intact. Lymph Nodes: No gross evidence for lymphadenopathy. Abdominal wall: Unremarkable. Reproductive: Vagina: Unremarkable. Uterus: There is a gravid fetus with anterior fundal placenta. No evidence for placental previa place nta up to 2.9 cm anteriorly from the cervical os. Ovaries: Follicular changes are noted to the ovaries. Bladder: Unremarkable. Bowel: Unremarkable as visualized. Peritoneum: Trace free fluid is seen on the Morison's pouch of the liver. Lymph nodes: No evidence of adenopathy. Vasculature: Unremarkable. Musculoskeletal: Bone marrow signal is within normal signal intensity. Abdominal wall/soft tissues: Unremarkable. IMPRESSION: 1. Limited exam due to slice selection, the cecum and expected location of the appendix in close pro ximity to the right ovary and other structures as well as significant motion. There is trace free flu id around the liver. The appendix is not definitively visualized. Close clinical follow-up and clinic al correlation recommended. 2. Physiologic dilation of the renal collecting systems which is normal for patient. 3. Anterior location of the placenta without evidence for placenta previa. [facility], , 10/19/2024 7:49 PM
--- NOTE | 2024-10-20 07:57 | P.PN ---
Subjective Progress Note Date: 10/19/24 Principal diagnosis: Reason for follow-up is UTI Patient is a 18-year-old female with no significant past medical history patient is currently 15 weeks presenting to the hospital for evaluation of right-sided abdominal pain that started the day of presentation to hospital, patient did have significant positive UA concerning for pyelonephritis did have a abdominal ultrasound suggestive of right-sided hydronephrosis but no stones. On today's evaluation that is 10/19/2024, patient has been afebrile, patient is breathing comfortably and is currently on room air, patient denies having any significant cough no chest pain, patient denies nausea vomiting or diarrhea and abdominal pain has slightly decreased in intensity. Patient did not have any lab draw today cultures are currently pending Objective - Vital Signs Vital signs: Vital Signs Temp 98.1 F 10/19/24 07:00 Pulse 76 10/19/24 07:00 Resp 15 10/19/24 07:00 BP 98/60 10/19/24 07:00 Pulse Ox 98 10/19/24 07:00 FiO2 Intake & Output 10/18/24 10/19/24 10/19/24 18:59 06:59 18:59 Other: Voiding Method Toilet Toilet # Voids 4 2 - Exam GENERAL DESCRIPTION: Young female lying in bed in no distress RESPIRATORY SYSTEM: Unlabored breathing , decreased breath sounds at bases HEART: S1 S2 regular rate and rhythm , ABDOMEN: Soft , no tenderness EXTREMITIES: No edema feet - Labs CBC & Chem 7: 10/18/24 06:12 10/18/24 06:12 Assessment and Plan (1) UTI (urinary tract infection) Current Visit: Yes Status: Acute Code(s): N39.0 - URINARY TRACT INFECTION, SITE NOT SPECIFIED SNOMED Code(s): 72997050 Plan: 1patient presenting the hospital with lower abdominal pain in this patient who is currently 15 weeks patient noticed to have a significant tenderness right lower quadrant area with some rebound tenderness with a question of possi ble appendicitis, patient did have a significant positive UA however no significant urinary symptoms of burning or frequency though patient did mention a that she did have urinary symptoms about a week or 2 ago which she kind of ignored did not seek any attention this information was not provided on initial consultation 2- patient to continue with Rocephin while waiting for the culture to finalize Multiple question concern answered dictation was produced using [employer] software. please excuse any grammatical, word or spelling errors. Time with Patient: Less than 30
--- NOTE | 2024-10-20 14:41 | P.PN ---
Subjective Progress Note Date: 10/20/24 Patient seen and examined at bedside. States abdominal pain is somewhat improved today compared to yesterday. MRI of abdomen and pelvis was performed with no clear visualization of the appendix. Objective - Vital Signs Vital signs: Vital Signs Temp 98.6 F 10/20/24 07:00 Pulse 76 10/20/24 07:00 Resp 16 10/20/24 08:00 BP 100/54 10/20/24 07:00 Pulse Ox 97 10/20/24 07:00 FiO2 Intake & Output 10/19/24 10/20/24 10/20/24 18:59 06:59 18:59 Intake Total 236 1200 120 Balance 236 1200 120 Intake: Intake, IV Titration 1200 Amount Sodium Chloride 0.9% 1, 1150 000 ml @ 100 mls/hr IV . Q10H DARIUSZ Rx#:[id number] cefTRIAXone 1 gm In 50 Sodium Chloride 0.9% 50 ml @ 100 mls/hr IVPB HS DARIUSZ Rx#:[id number] Oral 236 120 Other: Voiding Method Toilet Toilet # Voids 4 1 - Constitutional General appearance: Present: cooperative, no acute distress - Gastrointestinal Gastrointestinal Comment(s): Soft, nontender, nondistended - Psychiatric Psychiatric: Present: A&O x's 3 - Labs CBC & Chem 7: 10/18/24 06:12 10/18/24 06:12 Labs: Microbiology - Last 24 Hours (Table) 10/17/24 22:00 Urine Culture - Final Urine,Voided Assessment and Plan Plan: Case discussed with patient. At this point, clinically she does not appear to have appendicitis. Appendix was not visualized based on MRI read. Her abdominal pain appears to be improving daily. At this point without confirmed appendicitis and no appropriate clinical evidence of appendicitis, attempting surgical intervention at 15 weeks of would be risky. This was discussed with the patient and she is agreeable. Pain seems to be likely secondary to urinary tract infection. Continue with treatment with antibiotics. Case discussed with admitting team. Recommended to patient that she return to the emergency department should her pain worsen if she is discharged.
[2024-10-20 15:28] VITALS: BP 110/65; PULSE 84; RESP 18; TEMP 97.5
--- NOTE | 2024-10-20 15:54 | P.PN ---
Subjective Progress Note Date: 10/20/24 Principal diagnosis: Reason for follow-up is UTI Patient is a 18-year-old female with no significant past medical history patient is currently 15 weeks presenting to the hospital for evaluation of right-sided abdominal pain that started the day of presentation to hospital, patient did have significant positive UA concerning for pyelonephritis did have a abdominal ultrasound suggestive of right-sided hydronephrosis but no stones. On today's evaluation that is 10/20/2024, Patient is afebrile this morning patient denies having any chest pain shortness of breath or cough, the patient is currently on room air, patient lower abdominal discomfort has decreased in intensity denies any nausea vomiting or diarrhea. No new lab has been repeated today culture remains to be negative so far Objective - Vital Signs Vital signs: Vital Signs Temp 98.6 F 10/20/24 07:00 Pulse 76 10/20/24 07:00 Resp 16 10/20/24 08:00 BP 100/54 10/20/24 07:00 Pulse Ox 97 10/20/24 07:00 FiO2 Intake & Output 10/19/24 10/20/24 10/20/24 18:59 06:59 18:59 Intake Total 236 1200 Balance 236 1200 Intake: Intake, IV Titration 1200 Amount Sodium Chloride 0.9% 1, 1150 000 ml @ 100 mls/hr IV . Q10H DARIUSZ Rx#:[id number] cefTRIAXone 1 gm In 50 Sodium Chloride 0.9% 50 ml @ 100 mls/hr IVPB HS DARIUSZ Rx#:[id number] Oral 236 Other: Voiding Method Toilet Toilet # Voids 4 1 - Exam GENERAL DESCRIPTION: Young female lying in bed in no distress RESPIRATORY SYSTEM: Unlabored breathing , decreased breath sounds at bases HEART: S1 S2 regular rate and rhythm , ABDOMEN: Soft , no tenderness EXTREMITIES: No edema feet - Labs CBC & Chem 7: 10/18/24 06:12 10/18/24 06:12 Labs: Microbiology - Last 24 Hours (Table) 10/17/24 22:00 Urine Culture - Final Urine,Voided Assessment and Plan (1) UTI (urinary tract infection) Status: Acute Code(s): N39.0 - URINARY TRACT INFECTION, SITE NOT SPECIFIED SNOMED Code(s): 93715229 Plan: 1patient presenting the hospital with lower abdominal pain in this patient who is currently 15 weeks patient noticed to have a significant tenderness right lower quadrant area with some rebound tenderness with a question of possible appendicitis, patient did have a significant positive UA however no significant urinary symptoms of burning or frequency though patient did mention a that she did have urinary symptoms about a week or 2 ago which she kind of ignored did not seek any attention this information was not provided on initial consultation 2- patient did have some clinical improvement on Rocephin will finish therapy with oral Ceftin prescription sent to the pharmacy dictation was produced using [employer] dictation software. please excuse any grammatical, word or spelling errors. Time with Patient: Less than 30
--- NOTE | 2024-10-20 23:12 | P.DS ---
Providers Date of admission: 10/17/24 23:38 Expected date of discharge: 10/20/24 Attending physician: Kaleb Martinez Consults: 10/17/24 23:37 Consult Physician Routine Consulting Provider: Luis Antonio Tejeda Consult Reason/Comments: UTI, abd pain, 15 wks Do you want consulting provider notified?: Yes, Notify in am 10/18/24 10:13 Consult Physician Routine Consulting Provider: Lisette Murrieta Consult Reason/Comments: UTi, 15 weeks Do you want consulting provider notified?: Yes 10/18/24 13:26 Consult Physician Routine Consulting Provider: Roosevelt Kessler Consult Reason/Comments: Lower abd pain, 15 weeks Do you want consulting provider notified?: Yes Primary care physician: [facility] Course: History of present illness: 18-year-old female with 1 para 0 who presented to hospital for complaint of severe suprapubic midline cramping pain for approximately 24 hours radiating to right flank. Patient is currently approximately 16 weeks of gestation. Patient denied any fever or chills at home. Patient also denied any nausea or vomiting. Patient denied any diarrhea. Patient denied any vaginal discharge. Patient afebrile, heart rate 91, respiratory rate 15, blood pressure 105/63, saturating 99% on room air. WBC 7.6, hemoglobin 12.7, platelet 200. BMP unremarkable. UA positive for WBCs more than 182, large leukocyte esterase many bacteria, 17 squamous cells. ultrasound showed single live intrauterine with estimated gestational age of 15 weeks 4 days. Abdomen/bladder ultrasound showed no renal calcification or hydronephrosis, small amount of fluid within the pelvis. October 19: Reclining in bed. Having some nausea. Still having abdominal pain. I just spoke to the nurse patient seen by surgery. Have ordered MRI of the abdomen. No further fever.At remains on IV ceftriaxone. Patient's at the bedside. October 20: Some improvement abdominal pain. Did walk in the hallway. Oral intake better. MRI of the abdomen nonspecific. Patient seen by Dr. serrano from surgery. No indication for surgery from his standpoint. Okay for patient to be discharged antibiotics. Did communicate with ID. Patient be discharged on Ceftin. Patient follow-up with her [facility] and also with surgery later this week. Diet discussed. Discussion and discharge planning more than 35 minutes On examination: VITAL SIGNS: 97.5, 84, 18, 110 x 65, 100% room air GENERAL APPEARANCE: In a recliner HEENT: Normal external appearance of nose and ear. Oral cavity normal EYES: Pupils equal. Conjunctiva normal. NECK: JVD not raised. Mass not palpable. RESPIRATORY: Respiratory effort normal. Lungs clear to auscultation. CARDIOVASCULAR: First and second sounds normal. No edema. ABDOMEN: Soft. Liver and spleen not palpable. Some lower abdominal tenderness. No guarding rigidity. No tenderness in the right renal angle. No mass palpable. PSYCHIATRY: Alert and oriented x3. Mood and affect normal. INVESTIGATIONS, reviewed in the clinical context: Pelvic MRI: Nonspecific October 18: White count 7.6 hemoglobin 12.7 sodium 134 potassium 3.8 BUN 5 creatinine 0.56 UA: Leukoesterase large. RBC 25. WBC more than 182. Squamous epithelial cells 17. ultrasound: Single live IUP estimated gestational age of 15 weeks 4 days. Ultrasound kidney bladder. Nonspecific Abdominal ultrasound: Possible mild right-sided hydronephrosis. Assessment and plan: -Probably mild pyelonephritis. IV ceftriaxone Ceftin for 3 days per ID -Acute UTI: IV ceftriaxone -16 weeks intrauterine Patient seen by Dr. Rosa Rooney from [facility]. Follows up at their office -Mild hyponatremia from decreased solid intake and increase intake of water. Disposition: Home Discussed with patient and boyfriend at the bedside. As a nurse. Patient sit up in the chair. Ambulate in the hallway. Diet discussed. MRI ordered by surgery. Past Medical History Past Medical History: No Reported History History of Any Multi-Drug Resistant Organisms: None Reported Past Surgical History: No Surgical Hx Reported Past Psychological History: No Psychological Hx Reported Smoking Status: Never smoker Past Alcohol Use History: None Reported Past Drug Use History: None Reported Plan - Discharge Summary Discharge Rx Participant: No New Discharge Prescriptions: New Acetaminophen Tab [Tylenol] 650 mg PO Q6HR PRN tab PRN Reason: Mild Pain Or Fever > 100.5 cefuroxime axetiL [Ceftin] 500 mg PO BID #14 tab Continue Aye-Ucnk-Yfyij Acid [-U Capsule (formulary)] 1 cap PO HS Discharge Medication List Egb-Szoo-Ngqqr Acid [-U Capsule (formulary)] 1 cap PO HS 10/18/24 [History] Acetaminophen Tab [Tylenol] 650 mg PO Q6HR PRN tab 10/20/24 [Rx] cefuroxime axetiL [Ceftin] 500 mg PO BID #14 tab 10/20/24 [Rx] Follow up Appointment(s)/Referral(s): ob-banking representative, [Other] - 1 Week vIanna Serrano DO [Doctor of Osteopathic Medicine] - 3 Days (FOLLOW UP ON SaturdayOct at 8:45am WITH DR KESSLER ) Cheri Minaya, NPC [Family Provider] - 1-2 days Patient Instructions/Handouts: Urinary Tract Infection in Women (DC), Urinary Tract Infection in Women (GEN), Kidney Infection (ED), Kidney Infection (DC) Activity/Diet/Wound Care/Special Instructions: soft bland diet abx per dr murrieta FOLLOW UP DIRECTED, SOONER FOR WORSENING SYMPTOMS, PROBLEMS OR CONCERNS. Discharge Disposition: HOME SELF-CARE
== END 2024-10-20 15:00 | disposition home or self-care (01) ==
LOC: EC 20:29 → 6NMEDSUR 23:38
PROVIDERS: ADMIT Hospitalist; ATTEND Hospitalist
DX: O23.42 Unspecified infection of urinary tract in pregnancy, second trimester (principal); O99.282 Endocrine, nutritional and metabolic diseases complicating pregnancy, second trimester; E87.1 Hypo-osmolality and hyponatremia; Z3A.16 16 weeks gestation of pregnancy
CPT/HCPCS: 96376 ×2; 96365; 96361; 99285; 36415; 80053; 80048; 83690; 85025 ×2; 81001; 87086; 76700; 76805; 76770; 72195; 74181; G0378 ×3; J2405 ×2; J0696 ×3

== ENCOUNTER 2025-02-18 17:10 | Outpatient (CLI) | payer BC, OTHER ==
[2025-02-18 18:36] LABS: Appearance,Urine Cloudy (Clear); Bacteria,Urine Moderate /hpf; Bilirubin,Urine Negative (Negative); Blood,Urine Trace (Negative); Color,Urine Light Yellow; Glucose,Urine (UA) Negative (Negative); Ketones,Urine 3+ (Negative); Leukocyte Esterase,Urine Large (Negative); Mucus,Urine Rare /hpf; Nitrite,Urine Negative (Negative); PH, Urine 6.5 (5.0-8.0); Protein,Urine Trace (Negative); RBC,Urine 5 /hpf (0-5); Specific Gravity,Urine 1.017 (1.001-1.035); Squamous Epithelial Cell,Urine 10 /hpf (0-4); Urobilinogen,Urine <2.0 mg/dL (<2.0); WBC,Urine 144 /hpf (0-5)
[2025-02-18] MEDS: LACTATED RINGERS 1,000 ML IV ONE ×3 (18:58→20:30)
[2025-02-18] MEDS: ONDANSETRON 4 MG/2 ML VIAL IVP STA (18:59)
[2025-02-18] MEDS: ACETAMINOPHEN IV (For NPO) 1,000 MG in EMPTY BAG 1 BAG IVPB ONE (18:59)
[2025-02-18 19:35] LABS: Basophils # (A) 0.03 10*3/uL (0.00-0.10); Basophils % (A) 0.2 %; Eosinophils # (A) 0.06 10*3/uL (0.04-0.35); Eosinophils % (A) 0.4 %; HCT 34.1 % (37.2-46.3); Lymphocytes # (A) 1.29 10*3/uL (0.90-5.00); Lymphocytes % (A) 8.7 %; MCH 27.8 pg (27.0-32.0); MCHC 32.3 g/dL (32.0-37.0); MCV 86.1 fL (80.0-97.0); Mean Platelet Volume 9.4 fL (9.5-12.2); Monocytes % (A) 7.4 %; Neutrophils # (A) 12.34 10*3/uL (1.80-7.70); Neutrophils % (A) 82.8 %; Platelet Count 244 10*3/uL (140-440); RBC 3.96 10*6/uL (4.10-5.20); RDW 12.3 % (11.5-14.5)
[2025-02-18 21:58] VITALS: BP 123/61; PULSE 104; RESP 16; TEMP 97.8
--- NOTE | 2025-02-27 11:48 | P.MSEPDOC ---
Presenting Problems - Arrival Data Date of Arrival on Unit: 02/18/25 Time of Arrival on Unit: 17:10 Mode of Transport: Ambulatory - Complaint OB-Reason for Admission/Chief Complaint: Acute Nausea/Vomiting Comment: Patient presents to triage with complaints of nausea vomiting back and abdominal pain. Medical History - Information : 2 Para: 0 Term: 0 : 0 Abortions: Spontaneous or Elective: 0 Number of Living Children: 0 - Gestational Age Gestational Age by GLENDY (wks/days): 32 Weeks and 4 Days Review of Systems - Review of Systems Constitutional: No problems Breast: No problems ENT: No problems Cardiovascular: No problems Respiratory: No problems Gastrointestinal: No problems Genitourinary: No problems Musculoskeletal: No problems Neurological: No problems Skin: No problems Vital Signs - Temperature Temperature: 97.8 F Temperature Source: Oral - Pulse Pulse Oximetery Pulse Rate: 104 Pulse Assessment Method: Pulse Oximetry - Respirations Respiratory Rate: 16 Oxygen Delivery Method: Room Air O2 Sat by Pulse Oximetry: 100 - Blood Pressure Right Arm Blood Pressure: 123/61 Blood Pressure Mean: 81 Blood Pressure Source: Automatic Cuff Physician Notification - Physician Notified Physician Notified Date: 02/18/25 Physician Notified Time: 18:25 Physician: Luis Antonio Tejeda Maternal Triage Index - Maternal Triage Index Presenting for scheduled procedure w/no complaint: No - Stat/Priority 1 Stat Priority 1: No - Urgent/Priority 2 Urgent Priority 2: No - Prompt/Priority 3 Prompt Priority 3: Yes Criteria Met for Priority 3: Patient presents to triage with complaints of nausea vomiting back and abdominal pain. Disposition - Disposition OB Disposition: Discharge to home Discharge Date: 02/18/25 Discharge Time: 21:16 I agree with the RN Medical Screening Exam: No Physician's MSE Comment: I have neither seen nor examined the patient. I disagree with the nurses MSE given no documentation of interventions or actions taken. Case reviewed; plan agreed upon as documented in EMR&OBIX.: Yes Diagnosis: (IDIOPATHIC) NORMAL PRESSURE HYDROCEPHALUS
== END 2025-02-18 21:59 ==
LOC: FBPOP 17:10
PROVIDERS: ATTEND Obstetrics & Gynecology
DX: O26.893 Other specified pregnancy related conditions, third trimester (principal); O21.9 Vomiting of pregnancy, unspecified; G91.2 (Idiopathic) normal pressure hydrocephalus; Z3A.32 32 weeks gestation of pregnancy; Z91.040 Latex allergy status
CPT/HCPCS: 59025; 99214; 96361; 96365; 96375; 85025; 81001; 87086; J2405; J0131

== ENCOUNTER 2025-04-12 14:38 | Outpatient (CLI) | payer BC, OTHER ==
[2025-04-12 15:45] LABS: Basophils # (A) 0.02 10*3/uL (0.00-0.10); Basophils % (A) 0.2 %; Eosinophils # (A) 0.11 10*3/uL (0.04-0.35); Eosinophils % (A) 1.2 %; HCT 30.8 % (37.2-46.3); HGB 9.6 g/dL (12.0-15.0); Lymphocytes # (A) 1.55 10*3/uL (0.90-5.00); Lymphocytes % (A) 17.1 %; MCH 25.1 pg (27.0-32.0); MCHC 31.2 g/dL (32.0-37.0); Monocytes # (A) 0.74 10*3/uL (0.20-1.00); Monocytes % (A) 8.1 %; Neutrophils # (A) 6.62 10*3/uL (1.80-7.70); Neutrophils % (A) 73.0 %; Platelet Count 225 10*3/uL (140-440); RBC 3.83 10*6/uL (4.10-5.20); RDW 14.3 % (11.5-14.5); WBC 9.08 10*3/uL (4.50-10.00)
[2025-04-12 15:56] LABS: ALT 10 U/L (4-34); AST 19 U/L (14-36); African American GFR (CKD) >90 (>60 ml/min/1.73 sqM); Blood Urea Nitrogen 12 mg/dL (7-17); LDH 179 U/L (120-246); Non-African American GFR(CKD) >90 (>60 ml/min/1.73 sqM); Uric Acid 5.6 mg/dL (3.7-7.4)
[2025-04-12 16:04] LABS: Bilirubin,Urine Negative (Negative); Blood,Urine Negative (Negative); Color,Urine Light Yellow; Glucose,Urine (UA) Negative (Negative); Ketones,Urine Negative (Negative); Leukocyte Esterase,Urine Negative (Negative); Nitrite,Urine Negative (Negative); PH, Urine 6.5 (5.0-8.0); Protein,Urine Negative (Negative); Specific Gravity,Urine 1.019 (1.001-1.035); Urobilinogen,Urine <2.0 mg/dL (<2.0)
[2025-04-12 16:06] LABS: MCV 80.4 fL (80.0-97.0)
[2025-04-12 16:17] LABS: Protein/Creatinine Ratio,Urine 0.089
[2025-04-12] MEDS: ACETAMINOPHEN TAB 500 MG TAB PO STA (17:17)
[2025-04-12] MEDS: METOCLOPRAMIDE 10 MG TAB PO STA (17:33)
[2025-04-12 19:21] VITALS: BP 130/73; PULSE 80; RESP 16; TEMP 97.7
== END 2025-04-12 18:45 | disposition home or self-care (01) ==
LOC: FBPOP 14:38
PROVIDERS: ATTEND Obstetrics & Gynecology
DX: O26.90 Pregnancy related conditions, unspecified, unspecified trimester (principal); Z3A.00 Weeks of gestation of pregnancy not specified; Z91.040 Latex allergy status
CPT/HCPCS: 59025; 81003; 82565; 82570; 83615; 84156; 84450; 84460; 84520; 84550; 85025; 99213

== ENCOUNTER 2025-04-14 05:53 | Inpatient (IN) | payer BC, OTHER ==
[2025-04-14] MEDS ORDERED: TERBUTALINE 1 MG/ML VIAL SQ PRN (06:10)
[2025-04-14] MEDS ORDERED: OXYTOCIN 10 UNIT/ML 1 ML VIAL IM PRN (06:10)
[2025-04-14] MEDS ORDERED: TRANEXAMIC 1,000 MG/100ML-NACL 1,000 MG in EMPTY BAG 1 BAG IV PRN (06:10)
[2025-04-14] MEDS ORDERED: METHYLERGONOVINE 0.2 MG/ML 1 ML AMP IM PRN (06:10)
[2025-04-14] MEDS ORDERED: CARBOPROST TROMETHAMINE 250 MCG/ML 1 ML AMP IM PRN (06:10)
[2025-04-14] MEDS: LACTATED RINGERS 1,000 ML IV SCH (06:28)
[2025-04-14] MEDS: OXYTOCIN 30 UNITS/500 ML NS 30 UNIT in SALINE 1 500ML.BAG IV SCH (06:45)
[2025-04-14 07:17] LABS: Basophils # (A) 0.03 10*3/uL (0.00-0.10); Basophils % (A) 0.2 %; Eosinophils # (A) 0.12 10*3/uL (0.04-0.35); Eosinophils % (A) 0.9 %; HCT 33.6 % (37.2-46.3); HGB 10.6 g/dL (12.0-15.0); Lymphocytes # (A) 1.66 10*3/uL (0.90-5.00); Lymphocytes % (A) 12.1 %; MCH 25.7 pg (27.0-32.0); MCHC 31.5 g/dL (32.0-37.0); MCV 81.6 fL (80.0-97.0); Monocytes # (A) 0.94 10*3/uL (0.20-1.00); Monocytes % (A) 6.8 %; Neutrophils # (A) 10.92 10*3/uL (1.80-7.70); Neutrophils % (A) 79.6 %; Platelet Count 242 10*3/uL (140-440); RBC 4.12 10*6/uL (4.10-5.20); RDW 14.4 % (11.5-14.5); WBC 13.73 10*3/uL (4.50-10.00)
--- NOTE | 2025-04-14 07:57 | P.HPOB ---
History of Present Illness H&P Date: 04/14/25 Chief Complaint: Induction of labor Ms. Osborn is a 19 year old at 40 weeks and 3 days with EDC of 04/11/2025 by 12 week US who presents for induction of labor for post-dates gestation. Her has been complicated by pyelonephritis for which she has been on daily suppressive Keflex. The fetus is estimated in the 63%ile based on a 32 week growth US. labs: blood type A positive, rubella immune, VDRL non-reactive, HBsAg negative, HIC negative, HCV Ab non-reactive, gonorrhea negative, chlamydia negative, GBS negative. s/p Tdap. Past Medical History Past Medical History: No Reported History, Asthma Additional Past Medical History / Comment(s): UTIs History of Any Multi-Drug Resistant Organisms: None Reported Past Surgical History: No Surgical Hx Reported Past Anesthesia/Blood Transfusion Reactions: No Reported Reaction Past Psychological History: Depression Smoking Status: Never smoker Past Alcohol Use History: None Reported Past Drug Use History: None Reported - Past Family History Mother History Unknown: Yes Father History Unknown: Yes Medications and Allergies Home Medications Medication Instructions Recorded Confirmed Type Mjh-Defy-Ihucm Acid 1 cap PO HS 10/18/24 02/19/25 History [-U Capsule (formulary)] Acetaminophen Tab [Tylenol] 650 mg PO Q6HR PRN tab 10/20/24 02/19/25 Rx cefuroxime axetiL [Ceftin] 500 mg PO BID #20 tab 02/23/25 Rx Allergies Allergy/AdvReac Type Severity Reaction Status Date / Time latex Allergy Itching Verified 04/14/25 06:08 Exam Intake and Output 04/13/25 04/14/25 04/14/25 22:59 06:59 14:59 Other: Weight 73.482 kg Focused physical exam is performed. This is a healthy-appearing in no apparent distress. Breathing is non-labored. Abdomen is gravid and non-tender. Cervical exam is 3/90/-1. AROM is undertaken with clear fluid noted. Extremities non-tender and non-edematous. heart tones are Category I and tocometer is graphing contractions every 2-4 minutes. Results Result Diagrams: 04/14/25 06:59 Abnormal Lab Results - Last 24 Hours (Table) 04/14/25 Range/Units 06:59 WBC 13.73 H (4.50-10.00) 10*3/uL Hgb 10.6 L (12.0-15.0) g/dL Hct 33.6 L (37.2-46.3) % MCH 25.7 L (27.0-32.0) pg MCHC 31.5 L (32.0-37.0) g/dL MPV 9.4 L (9.5-12.2) fL Immature Gran # 0.06 H (0.00-0.04) 10*3/uL Neutrophils # 10.92 H (1.80-7.70) 10*3/uL Assessment and Plan Assessment: 19 year old at 40 weeks and 3 days presenting for indcuction of labor Plan: Admit, clear liquid diet, pitocin per protocol, nubain PRN, continuous EFM and tocometer.
[2025-04-14] MEDS: ACETAMINOPHEN IV (For NPO) 1,000 MG in EMPTY BAG 1 BAG IVPB ONE (08:09)
[2025-04-14] MEDS: NALBUPHINE 10 MG/ML (10 ML MDV) IV PRN (10:26)
[2025-04-14] MEDS ORDERED: SODIUM CHLORIDE 0.9% 250 ML BAG ONE (11:30)
[2025-04-14] MEDS ORDERED: fentaNYL (PF) 50 MCG/ML 5 ML AMP ONE (11:30)
[2025-04-14] MEDS ORDERED: ROPIVACAINE 5 MG/ML 30 ML VIAL ONE (11:30)
[2025-04-14] MEDS ORDERED: HYDROCORTISONE 2.5% RECTAL CREAM 30 GM TUBE RECTAL PRN (17:25)
[2025-04-14] MEDS ORDERED: SIMETHICONE 80 MG CHEWABLE PO PRN (17:25)
[2025-04-14] MEDS ORDERED: diphenhydrAMINE 25 MG CAP PO PRN (17:25)
[2025-04-14] MEDS ORDERED: LANOLIN CREAM 1 GM TUBE TOPICAL PRN (17:25)
[2025-04-14] MEDS ORDERED: ZOLPIDEM 5 MG TAB PO PRN (17:25)
[2025-04-14] MEDS ORDERED: BENZOCAINE/MENTHOL SPRAY 1 GM/SPRAY AEROSOL TOPICAL PRN (17:25)
[2025-04-14] MEDS ORDERED: diphenhydrAMINE 50 MG/ML 1 ML VIAL IVP PRN ×2 (17:25)
--- NOTE | 2025-04-14 17:25 | P.PROBDLV ---
Vaginal Delivery Note - . Vaginal Delivery Note: DATE OF SERVICE: 04/14/2025 PROCEDURE: Normal Vaginal Delivery ATTENDING: Dr. Marcelina Garrett MD ESTIMATED BLOOD LOSS: 200 mL FINDINGS: VMI, Apgars 9/9. Weight 8 pounds and 6 ounces (3790 grams) PROCEDURE: Ms. Osborn is a 19 year old at 40 weeks and 3 days presenting to labor and delivery for induction of labor. For further details, please review the admitting H&P. Pitocin was titrated per protocol. AROM was undertaken at 745 revealing clear amniotic fluid. She received epidural anesthesia per her request. The patient was completely dilated at 1325. She pushed with Category I FHTs. A viable male was delivered at 1704. The was placed on the maternal abdomen and bulb suctioned. The infant was noted to be spontaneously crying. Cord was clamped and cut after a 60-second delay. The was handed off to the pediatric team. Placenta was delivered whole with gentle cord traction at 1707. Oxytocin was started to facilitate uterine tone. Uterine fundus was found to be firm and below the umbilicus upon fundal massage. Thorough examination of the cervix, vagina, periurethral area, and perineum revealed a second degree perineal laceration. The perineum was infiltrated with lidocaine and repaired with 2-0 Vicryl in the usual fashion. The patient is stable and allowed to begin the bonding process.
[2025-04-14] MEDS: LIDOCAINE 0.5% (PF) 5 MG/ML (50 ML SDV) SQ PRN (19:14)
[2025-04-14] MEDS: SENNOSIDES-DOCUSATE SODIUM 1 EACH TAB PO SCH (20:34)
[2025-04-14] MEDS: IBUPROFEN 800 MG TAB PO SCH (20:34)
[2025-04-14 23:17] VITALS: RESP 16
[2025-04-14] MEDS: ACETAMINOPHEN TAB 500 MG TAB PO SCH (23:59)
[2025-04-15 07:26] LABS: Basophils # (A) 0.04 10*3/uL (0.00-0.10); Basophils % (A) 0.3 %; Eosinophils # (A) 0.12 10*3/uL (0.04-0.35); Eosinophils % (A) 0.9 %; HCT 27.5 % (37.2-46.3); Lymphocytes # (A) 1.98 10*3/uL (0.90-5.00); Lymphocytes % (A) 14.9 %; MCH 25.2 pg (27.0-32.0); MCHC 31.3 g/dL (32.0-37.0); MCV 80.6 fL (80.0-97.0); Monocytes # (A) 1.03 10*3/uL (0.20-1.00); Monocytes % (A) 7.8 %; Neutrophils # (A) 10.05 10*3/uL (1.80-7.70); Neutrophils % (A) 75.7 %; Platelet Count 198 10*3/uL (140-440); RBC 3.41 10*6/uL (4.10-5.20); RDW 14.8 % (11.5-14.5); WBC 13.27 10*3/uL (4.50-10.00)
[2025-04-15 07:43] LABS: HGB 8.6 g/dL (12.0-15.0)
--- NOTE | 2025-04-15 08:51 | P.DS ---
Providers Date of admission: 04/14/25 05:53 Expected date of discharge: 04/15/25 Attending physician: Marcelina Garrett MD Primary care physician: Stated None Hospital Course: Ms. Osborn is a 19 year old now PPD#1 s/p without complications. The patient is doing well this morning and had no acute events overnight. She has no complaints this morning. She reports minimal lochia, passing flatus, voiding without difficulty, ambulating, and eating/drinking without nausea or vomiting. doing well at bedside, s/p circumcision. She denies chest pain, shortness of breathing, fevers, or chills overnight. She denies pain or swelling in the legs. restrictions are reviewed with the patient including pelvic rest for 6 weeks. The patient is encouraged to call the office if she experiences any heavy bleeding, foul-smelling discharge, breast complaints, or any if she has any other concerns. She will follow up in the office in 6 weeks for exam. All questions are answered. Patient Condition at Discharge: Good Plan - Discharge Summary New Discharge Prescriptions: New Docusate [Colace] 100 mg PO BID PRN #60 capsule PRN Reason: Constipation Ibuprofen [Motrin] 600 mg PO Q6HR PRN #30 tab PRN Reason: Mild Pain (Scale 1 To 3) No Action Ryk-Khrl-Ejbgd Acid [-U Capsule (formulary)] 1 cap PO HS Acetaminophen Tab [Tylenol] 650 mg PO Q6HR PRN tab PRN Reason: Mild Pain Or Fever > 100.5 cefuroxime axetiL [Ceftin] 500 mg PO BID #20 tab Discharge Medication List Dam-Rocv-Ydrxu Acid [-U Capsule (formulary)] 1 cap PO HS 10/18/24 [History] Acetaminophen Tab [Tylenol] 650 mg PO Q6HR PRN tab 10/20/24 [Rx] cefuroxime axetiL [Ceftin] 500 mg PO BID #20 tab 02/23/25 [Rx] Docusate [Colace] 100 mg PO BID PRN #60 capsule 04/15/25 [Rx] Ibuprofen [Motrin] 600 mg PO Q6HR PRN #30 tab 04/15/25 [Rx] Follow up Appointment(s)/Referral(s): Marcelina Garrett MD [STAFF PHYSICIAN] - 05/26/25 11:15 am Activity/Diet/Wound Care/Special Instructions: Instructions 1. Do not begin any exercise program for 3 weeks. 2. Do not resume sexual relations for 6 weeks or longer if uncomfortable. 3. You may take tub baths or showers at any time. 4. You may use tampons if desired after 6 weeks. 5. Keep any areas repaired with stitches clean and dry. 6. If you are not nursing, wear a good fitting, supportive bra during the day and limit fluid intake for at least 1 week to prevent breast engorgement. 7. Call the office, , within the next week to make appointment for your 6 week checkup if it has not already been made. 8. Report any of the following occurrences to the doctor promptly: a. Heavy, excessive bleeding b. Chills, fever c. Burning or frequency of urination d. Pain or redness and breasts if nursing e. Increasing pain or swelling of vulva (stitches). In addition to the above instructions, the following additional should be followed: 1. No heavy lifting or straining (exercising) until after 6 week checkup. 2. Keep abdominal incision clean and dry: You may wear a dressing if more comfortable. 3. Make office appointment for 2 weeks after delivery date. Discharge Disposition: HOME SELF-CARE
[2025-04-15 18:14] VITALS: BP 126/78; PULSE 95; TEMP 98.6
== END 2025-04-15 19:30 | disposition home or self-care (01) | DRG 806 ==
LOC: 4FBP 05:53
PROVIDERS: ADMIT Obstetrics & Gynecology; ATTEND Obstetrics & Gynecology
PROC: 10E0XZZ Delivery of Products of Conception, External Approach (ICD-10-PCS; principal; 2025-04-14)
PROC: 0KQM0ZZ Repair Perineum Muscle, Open Approach (ICD-10-PCS; 2025-04-14)
PROC: 10907ZC Drainage of Amniotic Fluid, Therapeutic from Products of Conception, Via Natural or Artificial Opening (ICD-10-PCS; 2025-04-14)
PROC: 3E033VJ Introduction of Other Hormone into Peripheral Vein, Percutaneous Approach (ICD-10-PCS; 2025-04-14)
DX: O48.0 Post-term pregnancy (principal); O23.03 Infections of kidney in pregnancy, third trimester; Z37.0 Single live birth; O70.1 Second degree perineal laceration during delivery; O99.344 Other mental disorders complicating childbirth; F32.A Depression, unspecified; Z3A.40 40 weeks gestation of pregnancy; Z91.040 Latex allergy status; Z87.442 Personal history of urinary calculi
CPT/HCPCS: 85025; 86850; 86900; 86901